=== PATIENT | female | born 1955 | race Caucasian/White ===

== ENCOUNTER → 2017-01-14 | Outpatient (CLI) | payer BC ==
[~2017-01-14] MED LIST: CAPTOPRIL50 MG PO; FORTAMET1000 MG PO; HYDROCODONE/APAP PO; JUICE PLUS WIT240 ML PO; LEVOTHYROXIN0.025 MG PO; PAROXETINE40 MG PO; THERA TEARS IO; TRICOR67 MG PO; VITAMIN C BUFF500 MG PO
== END ==
LOC: MC.RAD 10:03
DX: Z12.31 Encounter for screening mammogram for malignant neoplasm of breast (principal); Z80.3 Family history of malignant neoplasm of breast

== ENCOUNTER 2017-09-23 12:30 | Outpatient (CLI) | payer BC ==
[~2017-09-23] VITALS: Ht 167.6 cm; Wt 73.0 kg
[~2017-09-23 12:30] MED LIST changes: +CAPOTEN 50MG50 MG PO; -CAPTOPRIL50 MG PO; -FORTAMET1000 MG PO; +GLUCOPHAGE1000 MG PO; -LEVOTHYROXIN0.025 MG PO; -PAROXETINE40 MG PO; +PAXIL40 MG PO; +SYNTHROID0.137 MG PO; +TRICOR145 MG PO; -TRICOR67 MG PO
[2017-09-23 13:49] VITALS: BP 144/68; PULSE 66; TEMP 97.8
[2017-09-23] MEDS ORDERED: JANUVIA 100MG100 MG PO (13:55)
[2017-09-23] MEDS ORDERED: NORCO 325 MG-51 TAB PO (13:56)
[2017-09-23] MEDS ORDERED: MULTI VITAMINS1 TAB PO (13:56)
[2017-09-23] MEDS ORDERED: VITAMIN D 1001000 IU PO (13:57)
[2017-09-23] MEDS ORDERED: VITAMIN B COMPL1 SGL PO (13:57)
[2017-09-23] MEDS ORDERED: CALCIUM-MAGNES1 EAC1 PO (13:58)
[2017-09-23] MEDS ORDERED: PROBIOTIC FORMU1 CAP PO (13:59)
== END 2017-09-23 16:11 | disposition home or self-care (01) ==
LOC: COL.CAR 12:30
DX: S22.080A Wedge compression fracture of T11-T12 vertebra, initial encounter for closed fracture (principal); Z53.8 Procedure and treatment not carried out for other reasons

== ENCOUNTER 2018-04-16 20:02 | Inpatient (IN) | payer BC ==
[~2018-04-16] VITALS: Ht 165.1 cm; Wt 74.4 kg
[~2018-04-16 20:02] MED LIST changes: +CALCIUM-MAGNES1 EAC1 PO; +JANUVIA 100MG100 MG PO; +MULTI VITAMINS1 TAB PO; +NORCO 325 MG-51 TAB PO; +PROBIOTIC FORMU1 CAP PO; +VITAMIN B COMPL1 SGL PO; +VITAMIN D 1001000 IU PO
[2018-04-16 20:30] LABS: BASO # 0.1 (0.0-0.2); BASO % 0.3 % (0.0-2.0); EOS # 0.1 (0.0-0.7); EOS % 0.4 % (0-4.0); GRAN # 18.3 (1.4-6.5); GRAN % 86.5 % (42.2-75.2); HEMATOCRIT 43.5 % (37.0-47.0); HEMOGLOBIN 14.5 g/dl (12.5-16.0); LYMPH # 1.4 (1.2-3.4); LYMPH % 6.8 % (20.0-51.0); MEAN CELL VOLUME 83 fl (80.0-100.0); MEAN CORPUSCULAR HEMOGLOBIN 28 pg (27.0-31.0); MEAN CORPUSCULAR HGB CONC 33 g/dl (33.0-37.0); MEAN PLATELET VOLUME 10.7 fl (7.4-10.4); MONO # 1.1 (0.1-0.6); MONO % 5.2 % (1.7-9.3); PLATELET COUNT 293 K/mm3 (130-400); RED BLOOD COUNT 5.25 M/mm3 (4.10-5.30); REDCELL DISTRIBUTION WIDTH-CV 12.9 % (11.5-14.5)
[2018-04-16 20:39] LABS: ALBUMIN 4.1 gm/dL (3.5-5.0); BILIRUBIN,TOTAL 0.5 mg/dL (0.0-1.0); CALCIUM 10.6 mg/dL (8.4-10.2); CREATININE, serum 0.85 mg/dL (0.52-1.25); POTASSIUM 3.7 mmol/L (3.4-5.0); TOTAL PROTEIN 7.1 gm/dL (6.4-8.2)
[2018-04-16] MEDS ORDERED: CAPOTEN 50MG50 MG PO (22:57)
[2018-04-16] MEDS ORDERED: SYNTHROID 0.10.15 MG PO (22:58)
[2018-04-16] MEDS ORDERED: SYNTHROID0.137 MG PO (22:59)
[2018-04-16] MEDS ORDERED: TRICOR145 MG PO (23:00)
[2018-04-16] MEDS ORDERED: GLUCOPHAGE1000 MG PO (23:00)
[2018-04-17 00:37] VITALS: BP 152/62; PULSE 88; TEMP 97.8
[2018-04-17 01:36] LABS: COLLECTION METHOD CLEAN CATCH
[2018-04-17 01:43] LABS: MUCOUS Present /lpf; PH 6 (5-8); SQUAMOUS EPITHELIAL 0-2 /hpf; URINE APPEARANCE Clear; URINE BACTERIA None Seen /hpf; URINE BILIRUBIN Negative (NEGATIVE); URINE BLOOD 3+ (NEGATIVE); URINE COLOR Yellow; URINE GLUCOSE Negative (NEGATIVE); URINE KETONE Negative (NEGATIVE); URINE LEUKOCYTE ESTERASE Negative (NEGATIVE); URINE NITRATE Negative (NEGATIVE); URINE PROTEIN(semi-quant) Negative (NEGATIVE); URINE RBC >50 /hpf; URINE UROBILINOGEN Negative (NEGATIVE)
[2018-04-17 04:13] VITALS: BP 134/54; PULSE 80; TEMP 98.2
[2018-04-17 07:08] LABS: BASO % 0.2 % (0.0-2.0); EOS # 0.1 (0.0-0.7); EOS % 0.9 % (0-4.0); GRAN # 11.5 (1.4-6.5); GRAN % 90.4 % (42.2-75.2); HEMATOCRIT 44.6 % (37.0-47.0); HEMOGLOBIN 14.4 g/dl (12.5-16.0); LYMPH # 0.7 (1.2-3.4); LYMPH % 5.6 % (20.0-51.0); MEAN CELL VOLUME 86 fl (80.0-100.0); MEAN CORPUSCULAR HEMOGLOBIN 28 pg (27.0-31.0); MEAN CORPUSCULAR HGB CONC 32 g/dl (33.0-37.0); MEAN PLATELET VOLUME 10.7 fl (7.4-10.4); MONO # 0.3 (0.1-0.6); MONO % 2.4 % (1.7-9.3); PLATELET COUNT 247 K/mm3 (130-400); REDCELL DISTRIBUTION WIDTH-CV 13.1 % (11.5-14.5)
[2018-04-17 07:19] LABS: CALCIUM 9.5 mg/dL (8.4-10.2); CREATININE, serum 0.79 mg/dL (0.52-1.25); POTASSIUM 4.3 mmol/L (3.4-5.0)
[2018-04-17 08:45] VITALS: BP 137/66; PULSE 79; TEMP 98.1
[2018-04-17 10:55] VITALS: BP 129/55; PULSE 69; TEMP 97.6
[2018-04-17 15:06] VITALS: BP 126/56; PULSE 71; TEMP 98.2
[2018-04-17] MEDS ORDERED: FORTEO250 MCG/ML SQ (15:48)
[2018-04-17 20:10] VITALS: BP 146/65; PULSE 86; TEMP 98.1
[2018-04-18 03:47] VITALS: BP 136/53; PULSE 73; TEMP 97.6
[2018-04-18 08:33] VITALS: BP 139/57; PULSE 74; TEMP 97.8
[2018-04-18 12:11] VITALS: BP 142/63; PULSE 72; TEMP 98.3
[2018-04-18 15:44] VITALS: BP 151/59; PULSE 78; TEMP 98.8
[2018-04-18 16:00] VITALS: BP 132/49; PULSE 86; TEMP 98.2
[2018-04-18 20:00] VITALS: BP 148/61; PULSE 78; TEMP 98
[2018-04-19] VITALS: BP 157/67; PULSE 78; TEMP 97.8
[2018-04-19 04:00] VITALS: BP 149/61; PULSE 72; TEMP 98
[2018-04-19 06:36] LABS: BASO % 0.4 % (0.0-2.0); EOS # 0.2 (0.0-0.7); EOS % 3.4 % (0-4.0); GRAN # 4.7 (1.4-6.5); GRAN % 70.5 % (42.2-75.2); LYMPH # 1.1 (1.2-3.4); LYMPH % 15.8 % (20.0-51.0); MEAN CELL VOLUME 85 fl (80.0-100.0); MEAN CORPUSCULAR HGB CONC 32 g/dl (33.0-37.0); MEAN PLATELET VOLUME 10.9 fl (7.4-10.4); MONO # 0.6 (0.1-0.6); MONO % 9.6 % (1.7-9.3); PLATELET COUNT 188 K/mm3 (130-400); RED BLOOD COUNT 4.15 M/mm3 (4.10-5.30); REDCELL DISTRIBUTION WIDTH-CV 13.2 % (11.5-14.5)
[2018-04-19 06:42] LABS: HEMATOCRIT 35.4 % (37.0-47.0); HEMOGLOBIN 11.4 g/dl (12.5-16.0); MEAN CORPUSCULAR HEMOGLOBIN 27 pg (27.0-31.0)
[2018-04-19 08:00] VITALS: BP 145/55; PULSE 71; TEMP 98.1
[2018-04-19] MEDS ORDERED: TYLENOL 325MG325 MG PO (08:55)
[2018-04-19] MEDS ORDERED: NORCO 325 MG-51 TAB PO (08:55)
[2018-04-19] MEDS ORDERED: COLACE 100100 MG/CAP PO (08:55)
[2018-04-19] MEDS ORDERED: NOVLOG SQ (08:56)
[2018-04-19] MEDS ORDERED: MIRALAX PA17 GM/Dose PO (08:56)
== END 2018-04-19 10:51 | DRG 544 ==
LOC: COL.ER 20:02 → SURG 23:15 → COL.ER 23:15 → SURG 04-17 12:11
PROVIDERS: Emergency Medicine; Nurse Practitioner Family; Physician Assistant
DX: M80.052A Age-related osteoporosis with current pathological fracture, left femur, initial encounter for fracture (principal); I10 Essential (primary) hypertension; E03.9 Hypothyroidism, unspecified; E11.9 Type 2 diabetes mellitus without complications; F32.9 Major depressive disorder, single episode, unspecified; E83.52 Hypercalcemia; W01.0XXA Fall on same level from slipping, tripping and stumbling without subsequent striking against object, initial encounter; Y92.019 Unspecified place in single-family (private) house as the place of occurrence of the external cause
CPT/HCPCS: OP; 99222-AI; 99231-AI; 99239; G0378; G8987-GO; G8988-GO; J1170; J1815; J2405; J7030; Q9967

== ENCOUNTER 2018-04-19 10:59 | Inpatient (IN) | payer BC ==
[~2018-04-19] VITALS: Ht 165.1 cm; Wt 75.6 kg
[~2018-04-19 10:59] MED LIST changes: +COLACE 100100 MG/CAP PO; +FORTEO250 MCG/ML SQ; +MIRALAX PA17 GM/Dose PO; +NOVLOG SQ; +SYNTHROID 0.10.15 MG PO; +TYLENOL 325MG325 MG PO
[2018-04-19 13:18] VITALS: BP 149/63; PULSE 70; TEMP 99.2
[2018-04-19 20:16] VITALS: BP 140/61; PULSE 77; TEMP 98.5
[2018-04-20 05:23] VITALS: BP 168/68; PULSE 76; TEMP 98.2
[2018-04-20 15:08] VITALS: BP 149/74; PULSE 82; TEMP 98.3
[2018-04-21 04:45] VITALS: BP 165/77; PULSE 81; TEMP 98.5
[2018-04-21 16:56] VITALS: BP 141/63; PULSE 75; TEMP 98.3
[2018-04-22 06:00] VITALS: BP 164/79; PULSE 78; TEMP 97.8
[2018-04-22 17:25] VITALS: BP 154/62; PULSE 77; TEMP 97.8
[2018-04-23 06:00] VITALS: BP 143/60; PULSE 63; TEMP 98
[2018-04-23 18:26] VITALS: BP 151/62; PULSE 66; TEMP 98
[2018-04-24 06:32] VITALS: BP 130/71; PULSE 72; TEMP 97.7
[2018-04-24 17:36] VITALS: BP 144/66; PULSE 88; TEMP 98.4
[2018-04-25 06:00] VITALS: BP 156/74; PULSE 72; TEMP 97.7
[2018-04-25] MEDS ORDERED: NORCO 325 MG-7.1 TAB PO (08:34)
[2018-04-25] MEDS ORDERED: GLUCOPHAGE1000 MG PO (08:36)
[2018-04-25] MEDS ORDERED: VITAMIN C500 MG PO (10:46)
[2018-04-25] MEDS ORDERED: SENOKOT S 50 MG1 TAB PO (10:47)
[2018-04-25] MEDS ORDERED: THERATEARS SGL PO (10:47)
[2018-04-25 14:22] LABS: COLLECTION METHOD CLEAN CATCH
[2018-04-25 14:32] LABS: PH 5 (5-8); SQUAMOUS EPITHELIAL 0-2 /hpf; URINE APPEARANCE Clear; URINE BACTERIA None Seen /hpf; URINE BILIRUBIN Negative (NEGATIVE); URINE BLOOD 1+ (NEGATIVE); URINE COLOR Straw; URINE GLUCOSE Negative (NEGATIVE); URINE KETONE Negative (NEGATIVE); URINE LEUKOCYTE ESTERASE Negative (NEGATIVE); URINE NITRATE Negative (NEGATIVE); URINE PROTEIN(semi-quant) Negative (NEGATIVE); URINE RBC 0-2 /hpf; URINE UROBILINOGEN Negative (NEGATIVE)
[2018-04-25 17:46] VITALS: BP 138/63; PULSE 75; TEMP 98
[2018-04-26 05:22] VITALS: BP 146/64; PULSE 70; TEMP 97.9
== END 2018-04-26 14:20 | disposition home or self-care (01) | DRG 561 ==
PROVIDERS: Internal Medicine
DX: M80.051D Age-related osteoporosis with current pathological fracture, right femur, subsequent encounter for fracture with routine healing (principal); M80.052D Age-related osteoporosis with current pathological fracture, left femur, subsequent encounter for fracture with routine healing; W01.0XXD Fall on same level from slipping, tripping and stumbling without subsequent striking against object, subsequent encounter; I10 Essential (primary) hypertension; E11.9 Type 2 diabetes mellitus without complications; Z79.4 Long term (current) use of insulin
CPT/HCPCS: 99222-AI; 99232-AI; 99239; J1650; J1815